=== PATIENT | female | born 1985 | race Caucasian/White ===

== ENCOUNTER 2021-01-09 14:55 | Emergency (ER) | payer BC ==
--- NOTE | 2021-01-09 16:09 | CR ---
Chest: Portable view of the chest was obtained. Comparison: No prior chest imaging is available. Heart size and mediastinum are within normal limits. Lungs are clear with no acute parenchymal change. Surgical clips are seen within the upper right abdomen from prior cholecystectomy. Minimal scoliosis is noted within the spine. Impression: 1. Nothing acute is seen on portable chest x-ray. Diagnostic code #2
--- NOTE | 2021-01-09 16:55 | EDM.PDOC ---
ED HPI GENERAL MEDICAL PROBLEM - General Chief Complaint: Chest Pain Stated Complaint: CHEST PAIN Time Seen by Provider: 01/09/21 15:35 Source of Information: Reports: Patient History Limitations: Reports: No Limitations - History of Present Illness INITIAL COMMENTS - FREE TEXT/NARRATIVE: The patient presents with left shoulder and chest pain. She also had some palpitations. This started this afternoon. She has a history of SVT but she feels it did not go that high. When she checked her heart rate it was around 110. She has no fever, chills, cough, abdominal pain, nausea or vomiting. She has no other health problems. Onset: Sudden Duration: Hour(s): Location: Reports: Chest Quality: Reports: Sharp Severity: Mild Improves with: Reports: None Worsens with: Reports: None Associated Symptoms: Reports: Chest Pain. Denies: Cough, Fever/Chills, Headaches, Nausea/Vomiting, Shortness of Breath Left Chest Pain Score (Numeric/FACES): 7 Left Shoulder Pain Score (Numeric/FACES): 7 - Related Data Allergies Allergy/AdvReac Type Severity Reaction Status Date / Time sulfamethoxazole Allergy Severe Other Verified 01/09/21 15:26 [From Bactrim] trimethoprim [From Bactrim] Allergy Severe Other Verified 01/09/21 15:26 Home Meds: Home Meds ClonazePAM [KlonoPIN] 0.25 mg PO ASDIRECTED 01/09/21 [History] PARoxetine [Paxil] 10 mg PO DAILY 01/09/21 [History] Past Medical History Cardiovascular History: Reports: Other (See Below) Other Cardiovascular History: SVT Gastrointestinal History: Reports: GERD, Other (See Below) Other Gastrointestinal History: H.Pylori - Infectious Disease History Infectious Disease History: Reports: None - Past Surgical History HEENT Surgical History: Reports: Tonsillectomy GI Surgical History: Reports: Cholecystectomy, Hernia, Abdominal Female Surgical History: Reports: Hysterectomy Social & Family History - Tobacco Use Tobacco Use Status *Q: Current Every Day Tobacco User Years of Tobacco use: 12 Packs/Tins Daily: 0.2 - Caffeine Use Caffeine Use: Reports: Coffee - Recreational Drug Use Recreational Drug Use: No ED ROS GENERAL - Review of Systems Review Of Systems: See Below Constitutional: Reports: No Symptoms HEENT: Reports: No Symptoms Respiratory: Reports: No Symptoms Cardiovascular: Reports: Chest Pain, Palpitations Endocrine: Reports: No Symptoms GI/Abdominal: Reports: No Symptoms : Reports: No Symptoms Musculoskeletal: Reports: No Symptoms Skin: Reports: No Symptoms ED EXAM, GENERAL - Physical Exam Exam: See Below Exam Limited By: No Limitations General Appearance: Alert, No Apparent Distress Ears: Normal External Exam Nose: Normal Inspection Head: Atraumatic, Normocephalic Neck: Normal Inspection Respiratory/Chest: No Respiratory Distress, Lungs Clear, Normal Breath Sounds Cardiovascular: Regular Rate, Rhythm, No Edema, No Murmur GI/Abdominal: Soft, Non-Tender, No Organomegaly, No Mass Back Exam: Normal Inspection Extremities: Normal Inspection #1 Interpretation EKG Date: 01/09/21 Time: 15:23 Rhythm: NSR Rate (Beats/Min): 85 [place]: Normal P-Wave: Present QRS: Normal ST-T: Normal QT: Normal Course - Vital Signs Last Recorded V/S: Last Vital Signs Temp 98.5 F 01/09/21 15:20 Pulse 69 01/09/21 15:20 Resp 20 01/09/21 15:20 BP 128/89 01/09/21 15:20 Pulse Ox 98 01/09/21 15:20 - Orders/Labs/Meds Orders: Active Orders 24 hr Category Date Time Status Cardiac Monitoring [RC] . DIRECTED Care 01/09/21 15:44 Active EKG 12 Lead [EK] Stat Ther 01/09/21 15:19 Ordered Labs: Laboratory Tests 01/09/21 01/09/21 Range/Units 16:00 16:00 WBC 8.40 (3.98-10.04) K/mm3 RBC 4.88 (3.98-5.22) M/mm3 Hgb 14.3 (11.2-15.7) gm/dl Hct 42.4 (34.1-44.9) % MCV 86.9 (79.4-94.8) fl MCH 29.3 (25.6-32.2) pg MCHC 33.7 (32.2-35.5) g/dl RDW Std Deviation 42.0 (36.4-46.3) fL Plt Count 280 (182-369) K/mm3 MPV 10.7 (9.4-12.3) fl Neut % (Auto) 65.8 (34.0-71.1) % Lymph % (Auto) 27.0 (19.3-51.7) % [place] % (Auto) 5.4 (4.7-12.5) % Eos % (Auto) 1.5 (0.7-5.8) Baso % (Auto) 0.2 (0.1-1.2) % Neut # (Auto) 5.52 (1.56-6.13) K/mm3 Lymph # (Auto) 2.27 (1.18-3.74) K/mm3 [place] # (Auto) 0.45 H (0.24-0.36) K/mm3 Eos # (Auto) 0.13 (0.04-0.36) K/mm3 Baso # (Auto) 0.02 (0.01-0.08) K/mm3 Sodium 141 (136-145) mEq/L Potassium 3.9 (3.5-5.1) mEq/L Chloride 104 (98-107) mEq/L Carbon Dioxide 29 (21-32) mEq/L Anion Gap 11.9 (5-15) BUN 16 (7-18) mg/dL Creatinine 0.8 (0.55-1.02) mg/dL Est Cr Clr Drug Dosing 72.65 mL/min Estimated GFR (MDRD) > 60 (>60) mL/min BUN/Creatinine Ratio 20.0 H (14-18) Glucose 107 H (70-99) mg/dL Calcium 8.9 (8.5-10.1) mg/dL Total Bilirubin 0.2 (0.2-1.0) mg/dL AST 13 L (15-37) U/L ALT 28 (14-59) U/L Alkaline Phosphatase 76 (46-116) U/L Troponin I < 0.017 (0.00-0.056) ng/mL Total Protein 7.2 (6.4-8.2) g/dl Albumin 3.9 (3.4-5.0) g/dl Globulin 3.3 gm/dL Albumin/Globulin Ratio 1.2 (1-2) TSH 3rd Generation 0.827 (0.358-3.74) uIU/mL - Re-Assessments/Exams Free Text/Narrative Re-Assessment/Exam: 01/09/21 17:18 I ordered an EKG, CXR and labs. Her EKG shows a NSR with no acute changes. Her CXR shows nothing acute. Her CBC and CMP look good. Her troponin was negative. Her TSH was normal. She feels better. I will discharge her home. Departure - Departure Time of Disposition: 17:20 Disposition: Home, Self-Care 01 Condition: Good Clinical Impression: Atypical chest pain, Palpitations Referrals: PCP,Not In Area [Primary Care Provider] - Forms: ED Department Discharge Additional Instructions: Take your prescriptions as prescribed. Drink plenty of fluids. Follow up with your cytometry technologist. Please return if you are worse. Sepsis Event Note (ED) - Focused Exam Vital Signs: Vital Signs Temp Pulse Resp BP Pulse Ox 01/09/21 15:20 98.5 F 69 20 128/89 98 - My Orders Last 24 Hours: My Active Orders 01/09/21 15:19 EKG 12 Lead [EK] Stat 01/09/21 15:44 Cardiac Monitoring [RC] . DIRECTED - Assessment/Plan Last 24 Hours: My Active Orders 01/09/21 15:19 EKG 12 Lead [EK] Stat 01/09/21 15:44 Cardiac Monitoring [RC] . DIRECTED
== END 2021-01-09 17:31 | disposition home or self-care (01) ==
LOC: JD.ED 14:55
DX: R07.89 Other chest pain (principal); R00.2 Palpitations; Z88.1 Allergy status to other antibiotic agents; Z72.0 Tobacco use
CPT/HCPCS: 36415; 71045; 71045-26; 80053; 84443; 84484; 85025; 93005; 99285-25

== ENCOUNTER 2021-02-09 20:30 | Emergency (ER) | payer BC ==
--- NOTE | 2021-02-09 20:45 | EDM.PDOC ---
ED HPI GENERAL MEDICAL PROBLEM - General Chief Complaint: Chest Pain Stated Complaint: AURELIA AMB Time Seen by Provider: 02/09/21 20:42 - History of Present Illness INITIAL COMMENTS - FREE TEXT/NARRATIVE: 35-year-old female presents the emergency room brought in by EMS with palpitations and chest pain. Shortly before arrival patient developed some left arm pain this radiated into her chest and back down her left arm. This was not associated with nausea vomiting or breathing difficulties. Patient thought that her pulse rate was picking up with this episode. She has had problems with tachycardia in the past is not currently taking medications on this. Patient denies using any drugs or alcohol. Patient is not on any rate suppressive therapy at this time however she did take an Ativan which is worked with this in the past. At this time she is fairly symptom-free she received a nitro and aspirin by EMS. Patient is new to the area and has not established with a regular physician. - Related Data Allergies Allergy/AdvReac Type Severity Reaction Status Date / Time sulfamethoxazole Allergy Severe Other Verified 02/09/21 20:42 [From Bactrim] trimethoprim [From Bactrim] Allergy Severe Other Verified 02/09/21 20:42 Home Meds: Home Meds ClonazePAM [KlonoPIN] 0.25 mg PO ASDIRECTED 01/09/21 [History] PARoxetine [Paxil] 10 mg PO DAILY 01/09/21 [History] Past Medical History Cardiovascular History: Reports: Other (See Below) Other Cardiovascular History: SVT Gastrointestinal History: Reports: GERD, Other (See Below) Other Gastrointestinal History: H.Pylori - Infectious Disease History Infectious Disease History: Reports: None - Past Surgical History HEENT Surgical History: Reports: Tonsillectomy GI Surgical History: Reports: Cholecystectomy, Hernia, Abdominal Female Surgical History: Reports: Hysterectomy Social & Family History - Caffeine Use Caffeine Use: Reports: Coffee ED ROS GENERAL - Review of Systems Review Of Systems: See Below Constitutional: Reports: No Symptoms HEENT: Reports: No Symptoms Respiratory: Reports: No Symptoms Cardiovascular: Reports: Chest Pain, Blood Pressure Problem, Claudication Endocrine: Reports: No Symptoms GI/Abdominal: Reports: No Symptoms : Reports: No Symptoms Musculoskeletal: Reports: Arm Pain Skin: Reports: No Symptoms Neurological: Reports: No Symptoms Psychiatric: Reports: No Symptoms Hematologic/Lymphatic: Reports: No Symptoms Immunologic: Reports: No Symptoms ED EXAM, GENERAL - Physical Exam Exam: See Below Exam Limited By: No Limitations General Appearance: Alert, No Apparent Distress Eye Exam: Right Eye: Normal Inspection Ears: Normal External Exam, Normal Canal, Hearing Grossly Normal, Normal TMs Nose: Normal Inspection, Normal Mucosa, No Blood Throat/Mouth: Normal Inspection, Normal Lips, Normal Teeth, Normal Oropharynx Head: Atraumatic, Normocephalic Neck: Normal Inspection, Supple, Non-Tender, Full Range of Motion. No: Lymphadenopathy (L), Lymphadenopathy (R) Respiratory/Chest: No Respiratory Distress, Lungs Clear, Normal Breath Sounds Cardiovascular: No Edema, No Murmur GI/Abdominal: Normal Bowel Sounds, Soft, Non-Tender Back Exam: Normal Inspection. No: CVA Tenderness (L), CVA Tenderness (R) Extremities: Normal Inspection, Non-Tender, No Pedal Edema Neurological: Alert, Oriented, Normal Cognition #1 Interpretation Time: 20:51 Rhythm: NSR Rate (Beats/Min): 61 [place]: Normal P-Wave: Present QRS: Normal ST-T: Normal QT: Normal Comparison: NA - No Prior EKG EKG Interpretation Comments: Normal EKG Course - Vital Signs Last Recorded V/S: Last Vital Signs Temp 36.7 C 02/09/21 20:40 Pulse 60 02/09/21 20:40 Resp 16 02/09/21 20:40 BP 124/92 H 02/09/21 20:40 Pulse Ox 100 02/09/21 20:40 - Orders/Labs/Meds Orders: Active Orders 24 hr Category Date Time Status Chest 1V Frontal [CR] Stat Exams 02/09/21 20:57 Taken EKG 12 Lead [EK] Stat Ther 02/09/21 20:44 Ordered Labs: Laboratory Tests 02/09/21 02/09/21 Range/Units 21:10 21:10 PT 10.0 (9.7-12.0) SECONDS INR < 0.93 APTT 24.5 (21.7-31.4) SECONDS D-Dimer, Quantitative 0.31 (0.19-0.50) mg/L Sodium 141 (136-145) mEq/L Potassium 3.7 (3.5-5.1) mEq/L Chloride 106 (98-107) mEq/L Carbon Dioxide 24 (21-32) mEq/L Anion Gap 14.7 (5-15) BUN 14 (7-18) mg/dL Creatinine 0.7 (0.55-1.02) mg/dL Est Cr Clr Drug Dosing 83.03 mL/min Estimated GFR (MDRD) > 60 (>60) mL/min BUN/Creatinine Ratio 20.0 H (14-18) Glucose 86 (70-99) mg/dL Calcium 8.4 L (8.5-10.1) mg/dL Magnesium 2.0 (1.8-2.4) mg/dL Total Bilirubin 0.3 (0.2-1.0) mg/dL AST 8 L (15-37) U/L ALT 21 (14-59) U/L Alkaline Phosphatase 66 (46-116) U/L Troponin I < 0.017 (0.00-0.056) ng/mL Total Protein 6.6 (6.4-8.2) g/dl Albumin 3.8 (3.4-5.0) g/dl Globulin 2.8 gm/dL Albumin/Globulin Ratio 1.4 (1-2) TSH 3rd Generation 1.509 (0.358-3.74) uIU/mL - Re-Assessments/Exams Free Text/Narrative Re-Assessment/Exam: 02/10/21 00:35 Laboratory testing is nondiagnostic chest x-ray shows no acute cardiopulmonary changes. Patient is resting comfortably and her pulse often drops into the 50s on its own. Patient does use clonazepam on occasion and this seems to help and I am wondering if a lot of her symptoms might be anxiety related. I did discuss this with the patient at this point she would like to be discharged home she agrees to follow-up with a local healthcare provider. Patient recently moved to this area from [facility]. Departure - Departure Time of Disposition: 00:36 Disposition: Home, Self-Care 01 Clinical Impression: Chest pain, Palpitations - Discharge Information Referrals: PCP,Not In Area [Primary Care Provider] - Forms: ED Department Discharge Additional Instructions: Return to the emergency room with any questions problems or worsening symptoms. Establish with a local healthcare provider. The phone number to the hospital clinic is [phone] Continue your routine medications. Sepsis Event Note (ED) - Focused Exam Vital Signs: Vital Signs Temp Pulse Resp BP Pulse Ox 02/09/21 20:40 36.7 C 60 16 124/92 H 100 - My Orders Last 24 Hours: My Active Orders 02/09/21 20:44 EKG 12 Lead [EK] Stat 02/09/21 20:57 Chest 1V Frontal [CR] Stat - Assessment/Plan Last 24 Hours: My Active Orders 02/09/21 20:44 EKG 12 Lead [EK] Stat 02/09/21 20:57 Chest 1V Frontal [CR] Stat
--- NOTE | 2021-02-10 07:19 | CR ---
Chest: Portable view of the chest was obtained. Comparison: Prior chest x-ray of 01/09/21. Heart size and mediastinum are normal. Minimal atelectasis is seen within the left base adjacent to the hemidiaphragm. Lungs otherwise are clear. Bony structures show nothing acute. Prior cholecystectomy is noted. Impression: 1. Minimal left basilar atelectasis. 2. Nothing acute is seen on portable chest x-ray. Diagnostic code #2
== END 2021-02-10 00:46 | disposition home or self-care (01) ==
LOC: JD.ED 20:30
DX: R07.9 Chest pain, unspecified (principal); R00.2 Palpitations; Z88.1 Allergy status to other antibiotic agents
CPT/HCPCS: 36415; 71045; 71045-26; 80053; 83735; 84443; 84484; 85379; 85610; 85730; 93005; 93010; 99285; 99285-25

== ENCOUNTER 2021-08-08 12:03 | Emergency (ER) | payer MEDICAID ==
[2021-08-08] MEDS ORDERED: Sodium Chloride 0.9% 10 ML Syringe FLUSH PRN (12:35)
[2021-08-08 13:11] LABS: ESTIMATED GFR > 60 mL/min (>60)
== END 2021-08-08 15:03 | disposition home or self-care (01) ==
LOC: JD.ED 12:03
DX: R07.89 Other chest pain (principal); R00.2 Palpitations; Z86.16 Personal history of COVID-19; Z90.49 Acquired absence of other specified parts of digestive tract; Z90.710 Acquired absence of both cervix and uterus; Z79.899 Other long term (current) drug therapy; Z88.2 Allergy status to sulfonamides
CPT/HCPCS: 36415; 71045; 80053; 84443; 84484; 85025; 93005; 99285; J3490; 93010; 99284

== ENCOUNTER 2021-09-27 17:53 | Emergency (ER) | payer BC, MEDICAID, OTHER | END 2021-09-27 20:09 | disposition home or self-care (01) | LOC: JD.ED 17:53 | DX: S60.032A Contusion of left middle finger without damage to nail, initial encounter (principal); R07.81 Pleurodynia; Z88.1 Allergy status to other antibiotic agents; Z86.16 Personal history of COVID-19; W18.30XA Fall on same level, unspecified, initial encounter; Y99.0 Civilian activity done for income or pay | CPT/HCPCS: 71101-26-RT; 71101-RT; 73140-26-F2; 73140-F2; 99283 ==

== ENCOUNTER 2021-11-30 19:58 | Emergency (ER) | payer MEDICAID, OTHER ==
[2021-11-30] MEDS ORDERED: Sodium Chloride 0.9% 10 ML Syringe FLUSH PRN (20:27)
[2021-11-30] MEDS ORDERED: LORazepam 2 MG/ML SDV IVPUSH ONE (20:28)
[2021-11-30 21:16] LABS: ESTIMATED GFR 84 mL/min (>60)
== END 2021-11-30 22:06 | disposition home or self-care (01) ==
LOC: JD.ED 19:58
DX: R00.2 Palpitations (principal); R11.2 Nausea with vomiting, unspecified; Z88.2 Allergy status to sulfonamides; Z79.899 Other long term (current) drug therapy; Z86.16 Personal history of COVID-19; Z90.49 Acquired absence of other specified parts of digestive tract; Z90.710 Acquired absence of both cervix and uterus
CPT/HCPCS: 36415; 71045; 80053; 83735; 84443; 84484; 85025; 86140; 93005; 93225; 93226; 96374; 99285; J2060; J3490

== ENCOUNTER 2022-06-14 17:16 | Emergency (ER) | payer MEDICAID | END 2022-06-14 19:21 | disposition home or self-care (01) | LOC: JD.ED 17:16 | DX: R07.89 Other chest pain (principal); Z88.1 Allergy status to other antibiotic agents; Z86.16 Personal history of COVID-19 | CPT/HCPCS: 36415; 71045; 71045-26; 80053; 83735; 83880; 84484; 85025; 85379; 85610; 85730; 93005; 93010; 99284; 99285 ==